=== PATIENT | male | born 1955 | race Caucasian/White ===

== ENCOUNTER 2017-02-24 11:04 | Outpatient (CLI) | payer BC ==
[2017-02-24 13:12] LABS: BASOPHILS % (AUTO) 0.6 %; EOSINOPHILS # (AUTO) 0.2 10^3/uL (0.0-0.7); EOSINOPHILS % (AUTO) 2.7 %; HCT - HEMATOCRIT 43.4 % (42.0-52.0); HGB - HEMOGLOBIN 14.5 g/dL (14.0-18.0); LYMPHOCYTES # (AUTO) 2.6 10^3/uL (1.5-3.5); LYMPHOCYTES % (AUTO) 33.2 %; MEAN CORPUSCULAR HEMOGLOBIN 31.3 pg (27.0-31.0); MEAN CORPUSCULAR HGB CONC 33.5 g/dL (32.0-36.0); MEAN CORPUSCULAR VOLUME 93.4 fL (80.0-94.0); MEAN PLATELET VOLUME 9.3 fL (7.4-11.4); MONOCYTES # (AUTO) 0.5 10^3/uL (0.0-1.0); NEUTROPHILS # (AUTO) 4.4 10^3/uL (1.5-6.6); NEUTROPHILS % (AUTO) 57.5 %; RED BLOOD COUNT 4.64 10^6/uL (4.70-6.10); RED CELL DISTRIBUTION WIDTH 13.4 % (12.0-15.0); UNCORRECTED WHITE BLOOD COUNT 7.7 x10^3/uL; WHITE BLOOD COUNT 7.7 x10^3/uL (4.8-10.8)
[2017-02-24 13:31] LABS: ALBUMIN/GLOBULIN RATIO 1.4 (1.0-2.2); BILIRUBIN,TOTAL 0.8 mg/dL (0.2-1.0); BUN - BLOOD UREA NITROGEN 15 mg/dL (6-20); CALCIUM 8.8 mg/dL (8.5-10.3); CARBON DIOXIDE - CO2 26 mmol/L (21-32); CHLORIDE 104 mmol/L (101-111); CHOL/HDL RATIO 3.1 (<5.0); CHOLESTEROL 192 mg/dL; CREATININE 0.8 mg/dL (0.6-1.2); GFR - MDRD 99 (>89); GLUCOSE 89 mg/dL (70-100); HDL CHOLESTEROL 62 mg/dL; LDL/HDL RATIO 1.6 (<3.6); POTASSIUM 3.9 mmol/L (3.5-5.0); SODIUM 138 mmol/L (135-145); TOTAL PROTEIN 7.7 g/dL (6.7-8.2); TRIGLYCERIDES 160 mg/dL; VLDL CHOLESTEROL 32 mg/dL
== END 2017-02-24 11:05 | disposition home or self-care (01) ==
LOC: LAB.N 11:04
PROVIDERS: ATTEND Family Medicine
DX: E66.9 Obesity, unspecified (principal); F17.210 Nicotine dependence, cigarettes, uncomplicated; I10 Essential (primary) hypertension; E78.5 Hyperlipidemia, unspecified
CPT/HCPCS: 36415; 80053; 80061; 84443; 85025

== ENCOUNTER 2017-03-09 05:33 | Emergency (ER) | payer BC ==
[2017-03-09] MEDS ORDERED: OXYMETAZOLINE NASAL SPRAY NAS STA (05:51)
--- NOTE | 2017-03-09 05:52 | ED Physician Documentation ---
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 He says it was dripping consistently out front right nostril. No noted injury. No recent URI.) Timing - duration: Hours (1) Timing - details: Abrupt onset, Still present Location: Nose (right nostril) Improves: Other (did not stop with putting kleenex up nostril nor ice over nose. ) Associated symptoms: No: Congestion, Rhinorrhea, Swollen nodes, Cough Similar symptoms before: Has not had sx before Recently seen: Not recently seen Review of Systems Constitutional: denies: Fever, Chills Nose: reports: Rhinorrhea / runny nose. denies: Congestion Throat: denies: Sore throat Respiratory: denies: Cough GI: denies: Abdominal Pain, Nausea, Vomiting Skin: denies: Rash, Lesions Neurologic: denies: Generalized weakness, Near syncope PD PAST MEDICAL HISTORY - Past Medical History Past Medical History: Yes Cardiovascular: Hypertension, High cholesterol Respiratory: None Neuro: Parkinson's Endocrine/Autoimmune: None GI: None : None HEENT: None Psych: None Musculoskeletal: None Derm: None - Past Surgical History Past Surgical History: Yes Ortho: Hip replacement - Allergies Allergies/Adverse Reactions: Allergies Allergy/AdvReac Type Severity Reaction Status Date / Time Penicillins Allergy Hives Verified 03/09/17 05:43 - Social History Does the pt smoke?: No Smoking Status: Never smoker Does the pt drink ETOH?: No Does the pt have substance abuse?: No - Immunizations Immunizations are current?: Yes PD ED PE NORMAL - Vitals Vital signs reviewed: Yes - General General: Alert and oriented X 3, No acute distress, Well developed/nourished, Other (some bleeding right nare with nose clamp in place. ) - HEENT HEENT: PERRL, Ears normal, Pharynx benign, Other (bleeding right anterior medial wall when clamping stopped, coming from point of inflammation with vessel elevated and mild bleeding. 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, No motor deficit, Normal speech Results - Vitals Vitals: Vital Signs - 24 hr 03/09/17 03/09/17 05:41 06:50 Temperature 36.1 C L Heart Rate 93 79 Respiratory 18 20 Rate Blood Pressure 157/88 H 143/80 H O2 Saturation 94 95 Oxygen O2 Source Room air Procedures - Epistaxis Site: Right, Anterior Preparation: Clots removed, Afrin, Lidocaine, Clamp / pressure applied Treatment: Silver Nitrate, Packing inserted Other: Observed - no bleeding, Pt tolerated well, O2 sat WNL Departure - Departure Disposition: Home, Self Care Clinical Impression: Epistaxis Condition: Stable Record reviewed to determine appropriate education?: Yes Instructions: ED Nosebleed Follow-Up: Leandro Pena MD [Primary Care Provider] - Comments: Leave the packing in the nostril through the day today and remove it this evening gently with the slow pole. Return if signs of significant bleeding. If he has slight bleeding then saturate the packing with the Afrin and penchant for 10-15 minutes. Once the packing is out for the next few days, use some saline nose spray or some Vaseline on a Q-tip to moisturizing lubricate the wall of the nostril as its healing. Discharge Date/Time: 03/09/17 06:50
[2017-03-09] MEDS ORDERED: OXYMETAZOLINE NASAL SPRAY NAS ONE (06:02)
[2017-03-09 06:51] VITALS: BP 143/80
== END 2017-03-09 06:50 | disposition home or self-care (01) ==
LOC: ED 05:33
DX: R04.0 Epistaxis (principal); I10 Essential (primary) hypertension; E78.00 Pure hypercholesterolemia, unspecified; G20 Parkinson's disease
CPT/HCPCS: 30901; 99282; 99283; A9270

== ENCOUNTER 2017-12-01 08:00 | Outpatient (CLI) | payer BC ==
[2017-12-01 12:49] LABS: BASOPHILS # (AUTO) 0.1 10^3/uL (0.0-0.1); BASOPHILS % (AUTO) 0.8 %; EOSINOPHILS # (AUTO) 0.2 10^3/uL (0.0-0.7); EOSINOPHILS % (AUTO) 2.3 %; HGB - HEMOGLOBIN 15.2 g/dL (14.0-18.0); LYMPHOCYTES # (AUTO) 2.6 10^3/uL (1.5-3.5); LYMPHOCYTES % (AUTO) 32.8 %; MEAN CORPUSCULAR HEMOGLOBIN 31.7 pg (27.0-31.0); MEAN CORPUSCULAR HGB CONC 33.7 g/dL (32.0-36.0); MEAN CORPUSCULAR VOLUME 94.3 fL (80.0-94.0); MEAN PLATELET VOLUME 9.4 fL (7.4-11.4); MONOCYTES # (AUTO) 0.5 10^3/uL (0.0-1.0); MONOCYTES % (AUTO) 6.1 %; NEUTROPHILS # (AUTO) 4.7 10^3/uL (1.5-6.6); PLT - PLATELET COUNT 209 10^3/uL (130-450); RED CELL DISTRIBUTION WIDTH 13.4 % (12.0-15.0); WHITE BLOOD COUNT 8.1 x10^3/uL (4.8-10.8)
[2017-12-01 13:09] LABS: ALBUMIN 4.3 g/dL (3.2-5.5); ALBUMIN/GLOBULIN RATIO 1.2 (1.0-2.2); ALKALINE PHOSPHATASE 68 IU/L (42-121); ALT ALANINE AMINOTRANSFERASE 10 IU/L (10-60); AST ASPARTATE AMINOTRANSFERASE 28 IU/L (10-42); BILIRUBIN,TOTAL 0.9 mg/dL (0.2-1.0); BUN - BLOOD UREA NITROGEN 18 mg/dL (6-20); CALCIUM 9.2 mg/dL (8.5-10.3); CARBON DIOXIDE - CO2 26 mmol/L (21-32); CHLORIDE 103 mmol/L (101-111); CHOL/HDL RATIO 2.9 (<5.0); CHOLESTEROL 175 mg/dL; CREATININE 0.9 mg/dL (0.6-1.2); GFR - MDRD 86 (>89); GLUCOSE 110 mg/dL (70-100); HDL CHOLESTEROL 60 mg/dL; LDL CHOLESTEROL,CALCULATED 86 mg/dL; LDL/HDL RATIO 1.4 (<3.6); SODIUM 138 mmol/L (135-145); TOTAL PROTEIN 7.8 g/dL (6.7-8.2); VLDL CHOLESTEROL 29 mg/dL
== END 2017-12-01 08:01 ==
LOC: LAB.N 08:00
PROVIDERS: ATTEND Family Medicine
DX: E78.5 Hyperlipidemia, unspecified (principal); I10 Essential (primary) hypertension; Z51.81 Encounter for therapeutic drug level monitoring; G20 Parkinson's disease
CPT/HCPCS: 36415; 80053; 80061; 83721; 85025

== ENCOUNTER 2017-12-15 08:00 | Outpatient (CLI) | payer BC ==
[2017-12-15 13:30] LABS: HB2 TOTAL 16.8 g/dL; HEMOGLOBIN A1C 0.63 g/dL; HEMOGLOBIN A1C % 5.6 % (4.6-6.2)
== END 2017-12-15 08:01 | disposition home or self-care (01) ==
LOC: LAB.N 08:00
PROVIDERS: ATTEND Family Medicine
DX: R73.01 Impaired fasting glucose (principal)
CPT/HCPCS: 36415; 83036

== ENCOUNTER 2018-03-23 11:30 | Outpatient (CLI) | payer BC ==
[2018-03-23 19:29] LABS: CALCIUM 9.1 mg/dL (8.5-10.3); CREATININE 0.8 mg/dL (0.6-1.2)
[2018-03-23 20:01] LABS: HB2 TOTAL 15.8 g/dL; HEMOGLOBIN A1C 0.55 g/dL; HEMOGLOBIN A1C % 5.3 % (4.6-6.2)
== END 2018-03-23 11:31 | disposition home or self-care (01) ==
LOC: LAB.WCP 11:30
PROVIDERS: ATTEND Family Medicine
DX: R73.01 Impaired fasting glucose (principal)
CPT/HCPCS: 36415; 80048; 83036

== ENCOUNTER 2019-11-07 07:00 | Outpatient (CLI) | payer BC ==
[2019-11-07 13:40] LABS: ALBUMIN 4.4 g/dL (3.2-5.5); ALBUMIN/GLOBULIN RATIO 1.4 (1.0-2.2); ALKALINE PHOSPHATASE 74 IU/L (42-121); ALT ALANINE AMINOTRANSFERASE 11 IU/L (10-60); AST ASPARTATE AMINOTRANSFERASE 30 IU/L (10-42); BASOPHILS # (AUTO) 0.1 10^3/uL (0.0-0.1); BASOPHILS % (AUTO) 0.8 %; BILIRUBIN,TOTAL 0.8 mg/dL (0.2-1.0); BUN - BLOOD UREA NITROGEN 24 mg/dL (6-20); CARBON DIOXIDE - CO2 24 mmol/L (21-32); CHLORIDE 104 mmol/L (101-111); CHOL/HDL RATIO 3.1 (<5.0); CHOLESTEROL 196 mg/dL; CREATININE 0.9 mg/dL (0.6-1.2); EOSINOPHILS # (AUTO) 0.3 10^3/uL (0.0-0.7); EOSINOPHILS % (AUTO) 4.2 %; GLUCOSE 101 mg/dL (70-100); HDL CHOLESTEROL 64 mg/dL; HGB - HEMOGLOBIN 15.2 g/dL (14.0-18.0); LDL CHOLESTEROL,CALCULATED 93 mg/dL; LDL/HDL RATIO 1.5 (<3.6); LYMPHOCYTES # (AUTO) 2.1 10^3/uL (1.5-3.5); LYMPHOCYTES % (AUTO) 29.8 %; MEAN CORPUSCULAR HEMOGLOBIN 31.5 pg (27.0-31.0); MEAN CORPUSCULAR HGB CONC 32.5 g/dL (32.0-36.0); MEAN CORPUSCULAR VOLUME 96.7 fL (80.0-94.0); MEAN PLATELET VOLUME 10.5 fL (7.4-11.4); MONOCYTES # (AUTO) 0.6 10^3/uL (0.0-1.0); MONOCYTES % (AUTO) 7.9 %; NEUTROPHILS % (AUTO) 56.9 %; PLT - PLATELET COUNT 197 10^3/uL (130-450); RED BLOOD COUNT 4.83 10^6/uL (4.70-6.10); RED CELL DISTRIBUTION WIDTH 12.9 % (12.0-15.0); SODIUM 137 mmol/L (135-145); TOTAL PROTEIN 7.5 g/dL (6.7-8.2); VLDL CHOLESTEROL 39 mg/dL; WHITE BLOOD COUNT 7.1 x10^3/uL (4.8-10.8)
== END 2019-11-07 23:59 | disposition home or self-care (01) ==
LOC: LAB.WCP 07:00
PROVIDERS: ATTEND Physician Assistant Medical
DX: G20 Parkinson's disease (principal); E78.2 Mixed hyperlipidemia; I10 Essential (primary) hypertension; R41.3 Other amnesia; Z12.5 Encounter for screening for malignant neoplasm of prostate
CPT/HCPCS: 36415; 80053; 80061; 83721; 84443; 85025

== ENCOUNTER 2021-02-12 07:59 | Outpatient (CLI) | payer BC ==
[2021-02-12 12:32] LABS: BASOPHILS # (AUTO) 0.1 10^3/uL (0.0-0.1); BASOPHILS % (AUTO) 0.6 %; EOSINOPHILS # (AUTO) 0.3 10^3/uL (0.0-0.7); EOSINOPHILS % (AUTO) 3.3 %; HCT - HEMATOCRIT 44.2 % (42.0-52.0); LYMPHOCYTES # (AUTO) 1.9 10^3/uL (1.5-3.5); LYMPHOCYTES % (AUTO) 24.1 %; MEAN CORPUSCULAR HEMOGLOBIN 30.5 pg (27.0-31.0); MEAN CORPUSCULAR HGB CONC 31.7 g/dL (32.0-36.0); MEAN CORPUSCULAR VOLUME 96.3 fL (80.0-94.0); MONOCYTES # (AUTO) 0.6 10^3/uL (0.0-1.0); MONOCYTES % (AUTO) 8.2 %; NEUTROPHILS % (AUTO) 63.3 %; PLT - PLATELET COUNT 207 10^3/uL (130-450); RED BLOOD COUNT 4.59 10^6/uL (4.70-6.10); RED CELL DISTRIBUTION WIDTH 13.2 % (12.0-15.0); WHITE BLOOD COUNT 7.8 x10^3/uL (4.8-10.8)
[2021-02-12 12:53] LABS: ALBUMIN 4.4 g/dL (3.2-5.5); ALBUMIN/GLOBULIN RATIO 1.3 (1.0-2.2); ALKALINE PHOSPHATASE 75 IU/L (42-121); ALT ALANINE AMINOTRANSFERASE < 10 IU/L (10-60); AST ASPARTATE AMINOTRANSFERASE 20 IU/L (10-42); BILIRUBIN,TOTAL 0.9 mg/dL (0.2-1.0); BUN - BLOOD UREA NITROGEN 34 mg/dL (6-20); CALCIUM 9.2 mg/dL (8.5-10.3); CARBON DIOXIDE - CO2 25 mmol/L (21-32); CHLORIDE 101 mmol/L (101-111); CHOL/HDL RATIO 3.7 (<5.0); CHOLESTEROL 198 mg/dL; CREATININE 1.3 mg/dL (0.6-1.2); GFR - MDRD 56 (>89); GLUCOSE 105 mg/dL (70-100); HDL CHOLESTEROL 53 mg/dL; LDL CHOLESTEROL,CALCULATED 117 mg/dL; LDL/HDL RATIO 2.2 (<3.6); POTASSIUM 4.5 mmol/L (3.5-5.0); SODIUM 135 mmol/L (135-145); TOTAL PROTEIN 7.8 g/dL (6.7-8.2); TRIGLYCERIDES 141 mg/dL; VLDL CHOLESTEROL 28 mg/dL
[2021-02-12 13:09] LABS: THYROID STIMULATING HORMONE 1.6 uIU/mL (0.34-5.60)
== END 2021-02-12 23:59 | disposition home or self-care (01) ==
LOC: LAB.WCP 07:59
PROVIDERS: ATTEND Family Medicine
DX: I10 Essential (primary) hypertension (principal); E78.2 Mixed hyperlipidemia; Z12.5 Encounter for screening for malignant neoplasm of prostate
CPT/HCPCS: 36415; 80053; 80061; 83721; 84153; 84443; 85025

== ENCOUNTER 2021-12-03 12:51 | Outpatient (CLI) | payer BC ==
[2021-12-03 13:51] VITALS: BP 132/82
--- NOTE | 2021-12-03 13:51 | SLEEP CARE CONSULTATION ---
Information from patient questionnaire entered by Candice Rapp MA. I have reviewed and concur with the information entered by Candice Rapp MA. This document represents the service I personally performed and the decisions made by me, Meche Desouza ARNP. History of Present Illness Service Date and Time: 12/03/2021 1251 Reason for Visit: New patient (ONSET 06/19[birth year]2011, ) Chief Complaint: reports: Snoring, Observed pauses in breathing, Other (HALLUCINATIONS, TERRIBLE DREAMS) Date of Onset: OVER A YEAR, GETTING WORSE for nightmares Usual bedtime: 930-1030 PM Time it takes to fall asleep: 5-10 MINUTES Snores at night: Yes Observed to quit breathing while asleep: Yes (per ) Sleeps alone due to snoring: No Number of times waking at night: 1 Reasons for waking at night: reports: Snoring, Pain (from leg cramps), Bathroom. denies: Choking, Gasping for air Toss, Turn, or Twitch while sleeping: Yes Recalls having dreams: No (not even the nightmares) Usually gets out of bed at: 0330; weekends 0430 Feels refreshed in the morning: Yes Morning headache: No Sleepy or fatigued during the day: Yes (he has nodded off at desk at work) Ever fallen asleep while driving: Yes (drowsy driving; no accidents) Takes day naps: No (no intentional naps; will fall asleep after dinner sometimes for about hour) Dreams during day naps: No Prior sleep studies: No Additional HPI information: I had the pleasure of seeing OTILIA GÓMEZ today regarding the possibility of him having a sleep disorder. His current complaints are snoring, hallucinations and terrible dreams. He states his neurologist wanted him to have a sleep evaluation. He states he has Parkinson's and he has been seeing things. He states it can happen anytime of day. He denies having hallucinations when going to sleep or when waking up. He will see things and his tells him there is nothing there. He states he is having nightmares that happen 1-2 times a month. He has been waking up hitting out at the headboard and may have hit his . He woke up once with a black eye and scratches on his face with no recollection of how they happened. He has screamed and talked in his sleep. His doctor wants to see if he is getting enough sleep, to see if this is affecting these behaviors. His has told him that he snores but his will still sleep in same room. He has woke himself up snorting when falling asleep in his recliner after falling asleep. His has noted him stop breathing when sleeping and then gasp before snoring/breathing again. He is taking some medications that could cause nightmares; atorvastatin, pramipexole and levodopa. - Parasomnia Symptoms Ever been unable to move upon waking from sleep: No Walks in sleep: No Talks in sleep: Yes Ever acted out dreams in sleep: Yes (hitting out) Ever felt weak in the knees when startled or emotional: No Bothered by creepy, crawly, restless sensations in legs: Yes (usually at night, when sitting in chair; hard to sit still) Problems with memory or concentration: Yes (both; memory worse) Subjective Initial [place] Sleepiness Scale score: 10 (12/03/2021) Past Medical History Past Medical History: reports: Hypertension, Claustrophobia, Arthritis, Gout, Impotence, Depression, Other (PARKINSONS DISEASE) Social History 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 Patient is and lives in . Have you smoked in the past 12 months: Yes Cigarettes per day (20/pack): 10 Years of smokin Smoking Pack Years: 7.5 Alcohol use: Yes Alcohol amount and frequency: 1-2 X DAILY Caffeine use: Yes Caffeine amount and frequency: 2 X DAILY Family History Family history of sleep disordered breathing: No Allergies and Home Medications Known drug allergies: Yes (PNC) Drug allergies reviewed: Yes (Penicillin) Home medication list reviewed: Yes Allergy and home medication list: Allergies Penicillins Allergy (Verified 03/09/17 05:43) Hives Medications: Amlodipine 2.5 mg Atorvastatin 40 mg Carbidopa-levodopa 25-100 mg Carbidopa-levodopa CR 50-200 mg Entacapone 200 mg Lisinopril 20 mg Pramipexole 0.25 mg Rasagiline 1 mg Sertraline 25 mg Review of Systems Weight gain over past 5 years: 25 lbs Cardiovascular: reports: high blood pressure, irregular heart rate or pulse Gastrointestinal: reports: nausea, vomitting Urinary: reports: impotence Neurological: reports: disorientation, gait or balance problems Psychiatric: reports: depression, claustrophobia Ear/Nose/Throat: reports: tonsillectomy, wisdom teeth removed Musculoskeletal: reports: joint pain, muscle pain or cramping, mobility problems Immunologic: reports: allergies to food or environment Physical Exam Vital signs obtained and entered by: Nader RAPP CMA AAMN Blood Pressure: 132/82 (RESP 18, PULSE 108, LEFT) Heart Rate: 111 O2 Saturation: 96 (PAPER MASK) Height: 5 ft 8 in Weight: 287 lb 8 oz (CLOTHES) Body Mass Index: 43.7 BMI Classification: Morbidly Obese Neck circumference: 19 (INCHES) Mouth and throat: narrow oropharynx Soft palate: long Hard palate: normal Uvula: normal Uvula visualization: 25% Mallampati Class III Tongue: enlarged in size with teeth porter on lateral edges Tonsils: absent bilaterally Neck: normal w/o lymphadenopathy or thyromegaly Heart: irregular rhythm Lungs: clear bilaterally Impression and Plan 1. Suspected Obstructive Sleep Apnea-Hypopnea Syndrome, as suggested by a history of loud and irregular snoring, observed cessation of breath while asleep, gasping or choking in sleep and cognitive impairment. Narrow oropharynx and obesity are common predisposing factors for obstructive sleep apnea-hypopnea syndrome. I recommend proceeding to polysomnography to confirm the diagnosis and to assess severity. If the patient has significant sleep disordered breathing, a manual CPAP titration study will also be performed to find the optimal treatment pressure. I informed the patient of what the sleep studies involve and after some discussion, obtained agreement to proceed. The pathophysiology of obstructive sleep apnea-hypopnea syndrome was discussed with the patient and health risks of cardiovascular and cerebrovascular disease if not treated. Risks of drowsy driving discussed in detail and patient advised to avoid long distance driving and to picker/puller at the first sign of drowsiness. Patient agreed to plan. * Schedule polysomnography * Avoid long distance driving or driving when feeling sleepy. * Avoid alcohol, sedative and muscle relaxant around bedtime. * Attempt to lose weight. * Review instructions provided by trained office staff on how to prepare for the sleep study. * Return for follow-up after sleep study completed. Counseling Topics: Weight loss health impact Visit Type: In Office Time Spent with Patient (minutes): 40 Provider Statement: I spent 100% of the Face to Face Visit with the patient with greater than 50% spent counseling the patient and coordination of care.
== END 2021-12-03 12:52 | disposition home or self-care (01) ==
LOC: SC 12:51
PROVIDERS: ATTEND Nurse Practitioner Family
DX: R53.83 Other fatigue (principal); G47.8 Other sleep disorders; R06.83 Snoring; R06.81 Apnea, not elsewhere classified; F32.A Depression, unspecified; I10 Essential (primary) hypertension; E66.01 Morbid (severe) obesity due to excess calories; Z68.41 Body mass index [BMI] 40.0-44.9, adult; F17.210 Nicotine dependence, cigarettes, uncomplicated
CPT/HCPCS: 99203; 99212

== ENCOUNTER 2022-01-08 09:32 | Outpatient (CLI) | payer BC ==
[2022-01-08 18:57] LABS: BASOPHILS # (AUTO) 0.1 10^3/uL (0.0-0.1); BASOPHILS % (AUTO) 0.6 %; EOSINOPHILS # (AUTO) 0.1 10^3/uL (0.0-0.7); EOSINOPHILS % (AUTO) 1.6 %; HGB - HEMOGLOBIN 14.1 g/dL (14.0-18.0); LYMPHOCYTES # (AUTO) 1.8 10^3/uL (1.5-3.5); LYMPHOCYTES % (AUTO) 22.4 %; MEAN CORPUSCULAR HEMOGLOBIN 30.1 pg (27.0-31.0); MEAN PLATELET VOLUME 11.7 fL (7.4-11.4); MONOCYTES # (AUTO) 0.5 10^3/uL (0.0-1.0); MONOCYTES % (AUTO) 5.9 %; NEUTROPHILS # (AUTO) 5.6 10^3/uL (1.5-6.6); PLT - PLATELET COUNT 194 10^3/uL (130-450); RED BLOOD COUNT 4.68 10^6/uL (4.70-6.10); RED CELL DISTRIBUTION WIDTH 13.2 % (12.0-15.0); WHITE BLOOD COUNT 8.2 x10^3/uL (4.8-10.8)
[2022-01-08 19:15] LABS: ALBUMIN 4.7 g/dL (3.2-5.5); ALBUMIN/GLOBULIN RATIO 1.6 (1.0-2.2); ALKALINE PHOSPHATASE 65 IU/L (42-121); ALT ALANINE AMINOTRANSFERASE 10 IU/L (10-60); AST ASPARTATE AMINOTRANSFERASE 29 IU/L (10-42); BUN - BLOOD UREA NITROGEN 39 mg/dL (6-20); CALCIUM 9.3 mg/dL (8.5-10.3); CARBON DIOXIDE - CO2 22 mmol/L (21-32); CHLORIDE 110 mmol/L (101-111); CHOL/HDL RATIO 3.3 (<5.0); CHOLESTEROL 173 mg/dL; CREATININE 1.3 mg/dL (0.6-1.2); GFR - MDRD 55 (>89); GLUCOSE 99 mg/dL (70-100); HDL CHOLESTEROL 53 mg/dL; LDL CHOLESTEROL,CALCULATED 95 mg/dL; LDL/HDL RATIO 1.8 (<3.6); MAGNESIUM 1.9 mg/dL (1.7-2.8); POTASSIUM 4.8 mmol/L (3.5-5.0); SODIUM 139 mmol/L (135-145); TOTAL PROTEIN 7.6 g/dL (6.7-8.2); TRIGLYCERIDES 124 mg/dL; VLDL CHOLESTEROL 25 mg/dL
[2022-01-08 19:24] LABS: THYROID STIMULATING HORMONE 1.46 uIU/mL (0.34-5.60)
[2022-01-08 20:36] LABS: ESTIMATED AVERAGE GLUCOSE 128 mg/dL (70-100); HEMOGLOBIN A1c% 6.1 % (4.27-6.07)
== END 2022-01-08 09:33 | disposition home or self-care (01) ==
LOC: LAB.N 09:32
PROVIDERS: ATTEND Physician Assistant
DX: I48.21 Permanent atrial fibrillation (principal); E78.2 Mixed hyperlipidemia; R73.01 Impaired fasting glucose; Z12.5 Encounter for screening for malignant neoplasm of prostate
CPT/HCPCS: 36415; 80053; 80061; 83036; 83721; 83735; 84153; 84443; 85025

== ENCOUNTER 2022-01-13 12:47 | Outpatient (CLI) | payer BC | END 2022-01-13 12:48 | disposition home or self-care (01) | LOC: DI 12:47 | PROVIDERS: ATTEND Physician Assistant | DX: I48.21 Permanent atrial fibrillation (principal); R01.1 Cardiac murmur, unspecified; I51.7 Cardiomegaly; I77.810 Thoracic aortic ectasia; I35.0 Nonrheumatic aortic (valve) stenosis; I87.8 Other specified disorders of veins | CPT/HCPCS: 93306 ==

== ENCOUNTER 2022-03-29 13:21 | Outpatient (CLI) | payer BC ==
--- NOTE | 2022-03-29 14:00 | SLEEP CARE CONSULTATION ---
Information from patient questionnaire entered by Juan Pablo Madison. I have reviewed and concur with the information entered by Juan Pablo Madison. This document represents the service I personally performed and the decisions made by me, Meche Desouza ARNP. History of Present Illness Service Date and Time: 03/29/2022 1321 Initial [place] Sleepiness Scale score: 10 (12/03/2021) Current [place] Sleepiness Scale score: 16 (03/29/22) Additional HPI information: OTILIA GÓMEZ returns for follow up and results of the recently performed polysomnography. I explained the pathophysiology behind obstructive sleep apnea. We then spent quite a bit of time discussing different treatment options. For mild obstructive sleep apnea, surgery and oral appliance are alternatives to nasal CPAP therapy but in moderate or severe cases, nasal CPAP is the most effective and reliable treatment. Because apnea is primarily in supine position, then positional management therapy could be effective. Methods discussed such as positioning with pillows to prevent supine sleep. I reviewed the impact of weight changes on sleep apnea and strongly recommended losing weight. After some discussion, the patient opted to go with the nasal CPAP therapy. Nasal autoCPAP set at 4-15 cmH20 will be ordered with rationale explained. A manual titration study will be ordered if unable to find optimal pressure with office adjustments. I explained how CPAP machine works and what to expect when using the machine. Using CPAP every night in order to get used to it was emphasized. Patient advised to put CPAP mask on before getting into bed so as not to fall asleep without CPAP. To assist acclimation to CPAP use, it could also be used for a short time during day while reading or watching TV. The patient was instructed to call the CPAP supplier to discuss any mechanical problem that may occur. If the mask given is uncomfortable or is difficult to keep on through the night even with adjustment, contact the CPAP supplier as many will replace with another mask style if notified before 30 days. If snoring or perceives is not getting enough air or too much air from the machine, notify this office. Patient does not drink alcohol. Patient was cautioned about risks of drowsy driving until sleepiness symptoms resolve. Patient denies drowsy driving. Sleep Study - Results Type of Sleep Study: Polysomnography (DONE ON 12/23/21) Prior sleep studies: No Polysomnography/Home Sleep Study results: IMPRESSION: The quality of the study is good. The patient had normal sleep efficiency. The sleep architecture was abnormal for sleep fragmentation and reduced amount of time spent in REM sleep. Respiratory monitoring showed moderate obstructive sleep apnea-hypopnea (AHI = 18.3) associated with frequent arousals, oxyhemoglobin desaturation and moderate hypoxia (preston oxygen saturation of 78%). Baseline oxygen saturation was normal. The respiratory events occurred more frequently during supine sleep and REM sleep (supine AHI = 23.6; non-supine = 13.55). Snore was loud in intensity. There was moderate periodic leg movement of sleep not contributing to the sleep fragmentation. Cardiac rhythm was atrial fibrillation. No abnormal behavior (parasomnia) observed during the night. 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 Obstructive Sleep Apnea-Hypopnea Syndrome, moderate, with lowest oxygen saturation of 78%. Obviously this is the cause of the patients symptoms of unrefreshed sleep, and excessive daytime sleepiness. Positive pressure therapy could benefit hypertension, depression and Parkinson's disease. As mentioned above, the patient will be started on nasal autoCPAP therapy with pressure set at 4-15 cmH2O. A manual titration study will be completed if unable to find optimal treatment pressure with office adjustments. Compliance guidelines also reviewed. A copy of compliance guidelines will be given for reference at check out. Because the apnea is more severe supine, I instructed to avoid sleeping supine using pillow positioning until able to start CPAP use. 2. Hypoxemia, moderate, with a preston oxygen saturation of 78% and 12.4 minutes spent under 90%. His baseline oxygen saturation was normal with an average oxygen saturation of 91%. 3. Atrial fibrillation. Arrhythmia noted during sleep study. Patient has had some follow up with his PCP and cardiology after results of his PSG was completed. He had a follow up with cardiology who did some blood work and they found blood markers that were abnormal. 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 He had quick surgery to remove this tumor on February 17, 2022. He was started on Eliquis for his atrial fibrillation. He is now being follow by cardiology who wanted him to come in and get set up on a CPAP. 4. Periodic limb movement, moderate, that did not fragment patients sleep. Periodic limb movement of sleep (PLMS) is characterized by episodes of repetitive limb movements that occur during sleep and usually involve the lower limbs. Caffeine can aggravate PLMS and should be avoided. Sleep hygiene methods can also improve sleep as well as lifestyle changes such as regular exercise. Patient was advised that no treatment is needed at this time. If symptoms increase, then further evaluation is indicated. * Nasal auto CPAP therapy, pressure at 4-15 cm H2O. * Follow up with PCP for arrhythmia finding * Attempt to lose weight. * Avoid alcohol consumption near bedtime. * Avoid supine sleep until using CPAP. * The patient is again cautioned about driving until sleepiness completely resolves. * Return one month after CPAP obtained. I will assess response to therapy and compliance at that time. Counseling Topics: Sleeping position, Weight loss health impact Follow up with: PCP Follow up recommended for: Cardiac arrhythmia Visit Type: In Office Time Spent with Patient (minutes): 22 Provider Statement: I spent 100% of the Face to Face Visit with the patient with greater than 50% spent counseling the patient and coordination of care.
[2022-03-29 14:01] VITALS: BP 128/70
== END 2022-03-29 13:22 | disposition home or self-care (01) ==
LOC: SC 13:21
PROVIDERS: ATTEND Nurse Practitioner Family
DX: G47.33 Obstructive sleep apnea (adult) (pediatric) (principal); R09.02 Hypoxemia; I48.91 Unspecified atrial fibrillation; G47.61 Periodic limb movement disorder; Z79.01 Long term (current) use of anticoagulants; E66.01 Morbid (severe) obesity due to excess calories; Z68.41 Body mass index [BMI] 40.0-44.9, adult
CPT/HCPCS: 99212; 99213

== ENCOUNTER 2022-05-31 07:29 | Outpatient (CLI) | payer BC | END 2022-05-31 07:30 | disposition home or self-care (01) | LOC: LAB.N 07:29 | PROVIDERS: ATTEND Nurse Practitioner | DX: U07.1 COVID-19 (principal) ==

== ENCOUNTER 2022-07-01 08:36 | Outpatient (CLI) | payer BC ==
[2022-07-01 09:30] VITALS: BP 110/68
--- NOTE | 2022-07-01 09:30 | SLEEP CARE CONSULTATION ---
Information from patient questionnaire entered by Aurora Ibrahim. I have reviewed and concur with the information entered by Aurora Ibrahim. This document represents the service I personally performed and the decisions made by , Meche Desouza ARNP. History of Present Illness Service Date and Time: 07/01/2022 0836 Previous diagnosis: Moderate, Obstructive Sleep Apnea-Hypopnea Syndrome AHI: 18.3 (in 2021) Reason for follow up: first compliance (SET UP 04/21/22) Equipment type: CPAP (RESMED Airsense 11 s/u 04/21/2022) Equipment obtained from: Other ([facility]; getting supplies) Mask style: Nasal pillows (Dalzell II) Backup mask available: Yes (other nasal mask (dreamwear)) Last cushion change: month Prior sleep studies: No Type of Sleep Study: Polysomnography (DONE ON 12/23/21) HPI additional information: OTILIA GÓMEZ was diagnosed to have moderate, AHI 18.3, obstructive sleep apnea-hypopnea syndrome and returned today for CPAP therapy first compliance follow-up. Sleep Study - Results Type of Sleep Study: Polysomnography (DONE ON 12/23/21) Prior sleep studies: No CPAP Compliance Data - Data Reviewed with Patient Average duration of nightly device use: 4 HRS 21 MIN Compliance rate %: 97 (05/31/22-06/29/22; 30/30 days used) Current pressure setting (cmH2O): 4-15 (median 6.8, avg 9.9, max 11.1) Average residual AHI: 3.1 Central apnea: 0.2 Obstructive apnea: 1.2 Hypopnea: 1.3 Average large leak: 1.8 LPM Subjective Patient concerns: reports: mask discomfort (using pillows mask with some skin irriation; tried nasal cushion but would dislodge when on side), other (skin irritation of nose; resolved with putting lotion on skin). denies: aerophagia, air blowing in eyes, mask leak noise, condensation in mask/hose, nasal congestion, dry mouth, nose, throat, epistaxis Observed to snore while using device: No Current pressure setting perceived as: comfortable On therapy, patient: reports: sleeping better, awakening more refreshed, being more awake and alert during the day, more rested overall. denies: drowsiness while driving Initial [place] Sleepiness Scale score: 10 (12/03/2021) Current [place] Sleepiness Scale score: 14 (07/01/22) Allergies and Home Medications Drug allergies reviewed: Yes (penicillin) Home medication list reviewed: Yes (Manrique-truda infusions) Review of Systems Review of systems same as previous: No (Renal cell carcinoma) Physical Exam Vital signs obtained and entered by: AURORA Medina MA Blood Pressure: 110/68 (LEFT ARM) Cuff size: regular Heart Rate: 93 O2 Saturation: 95 Height: 5 ft 8 in Weight: 288 lb 12.8 oz Body Mass Index: 43.9 BMI Classification: Morbidly Obese Impression and Plan 1. Obstructive Sleep Apnea-Hypopnea Syndrome, moderate, with good treatment compliance and good apnea control. On CPAP therapy, the patient has better sleep quality and is more rested overall. The patients pressure will be changed to autoCPAP 7-11 cmH20 to reflect pressure being used. Patient advised to contact me if pressure change is uncomfortable so that it can be adjusted. Goals for apnea control discussed. Patient is using a nasal pillows mask, Dalzell II. He does like it now the skin irritation of his nose is resolved. He was given a Dreamwear nasal cushion mask that he likes the headgear set up but it will leak more when he is on his side because the mask becomes dislodged from his nose. I showed him the Dreamwear nasal pillows mask that is very similar to the Dreamwear nasal cushion mask and he would like to try it. I had a sample of a nasal pillows cushion, size medium, that fit his headgear and showed him how to connect. He will give this a try, if he likes this one better, he will order the nasal pillows cushions when he can in July. Otherwise he may need a larger cushion size on the Dalzell II since it is a small. Patient's apnea severity and rationale for treatment to reduce apnea, improve sleep quality and reduce cardiovascular and cerebrovascular events was reviewed. I also reviewed the benefit of consistent device use of CPAP for hypertension, arrhythmia (Afib) and depression. 2. Obesity, unspecified. Currently patients BMI is 43.9. Obesity increases the risk of apnea, CPAP pressure requirements and overall health risks especially cardiovascular and diabetes. Thus patient is advised to lose weight. * Change auto CPAP pressure to 7-11 cmH2O * Notify me if snoring with mask or feeling that the pressure is too much or too little * Attempt to lose weight * Call this office if any problems using CPAP * Return for follow up in 3 months, or sooner if concerns arise Counseling Topics: Spare mask, Weight loss health impact Visit Type: In Office Time Spent with Patient (minutes): 29 Provider Statement: I spent 100% of the Face to Face Visit with the patient with greater than 50% spent counseling the patient and coordination of care.
== END 2022-07-01 08:37 | disposition home or self-care (01) ==
LOC: SC 08:36
PROVIDERS: ATTEND Nurse Practitioner Family
DX: G47.33 Obstructive sleep apnea (adult) (pediatric) (principal); E66.01 Morbid (severe) obesity due to excess calories; Z68.41 Body mass index [BMI] 40.0-44.9, adult
CPT/HCPCS: 99212; 99213

== ENCOUNTER 2022-09-30 08:14 | Outpatient (CLI) | payer BC ==
--- NOTE | 2022-09-30 08:55 | SLEEP CARE CONSULTATION ---
Information from patient questionnaire entered by Aurora Ibrahim. I have reviewed and concur with the information entered by Aurora Ibrahim. This document represents the service I personally performed and the decisions made by me, Meche Desouza ARNP. History of Present Illness Service Date and Time: 09/30/2022 0814 Previous diagnosis: Moderate, Obstructive Sleep Apnea-Hypopnea Syndrome AHI: 18.3 (in 2021) Reason for follow up: three month (F/U) Equipment type: CPAP (RESMED Airsense 11, s/u 04/2022) Equipment obtained from: Other ([facility], getting supplies as needed) Mask style: Nasal Mask brand: Respironics (Dreamwear) Backup mask available: Yes (other mask) Last cushion change: yesterday Prior sleep studies: No Type of Sleep Study: Polysomnography (DONE ON 12/23/21) HPI additional information: OTILIA GÓMEZ was diagnosed to have moderate, AHI 18.3, obstructive sleep apnea-hypopnea syndrome and returned today for CPAP therapy three month follow- up. Sleep Study - Results Type of Sleep Study: Polysomnography (DONE ON 12/23/21) Prior sleep studies: No CPAP Compliance Data - Data Reviewed with Patient Average duration of nightly device use: 4 HRS 38 MINS Compliance rate %: 98 (07/01/22-09/28/22; 90/90 days used) Current pressure setting (cmH2O): 7-11 Average residual AHI: 3.2 Central apnea: 0.3 Obstructive apnea: 1.5 Hypopnea: 1.3 Average large leak: 0.4 lpm Subjective Patient concerns: reports: mask discomfort (with the nasal pillows, resolved with nasal cushion), air blowing in eyes, mask leak noise. denies: aerophagia, condensation in mask/hose, nasal congestion, dry mouth, nose, throat, epistaxis Observed to snore while using device: No Current pressure setting perceived as: comfortable On therapy, patient: reports: other (not feeling he rests better without mask on but is persisting with using it nightly). denies: drowsiness while driving Initial [place] Sleepiness Scale score: 10 (12/03/2021) Current [place] Sleepiness Scale score: 11 (09/30/22) Allergies and Home Medications Known drug allergies: Yes (penicillin) Drug allergies reviewed: Yes Home medication list reviewed: Yes (Levothyroxine 75 mcg) Allergy and home medication list: Allergies Penicillins Allergy (Verified 09/29/22 14:13) Hives Review of Systems Review of systems same as previous: No (low thyroid due to cancer immunotherapy) Physical Exam Vital signs obtained and entered by: AURORA Medina MA Blood Pressure: 128/72 (LEFT ARM) Cuff size: long Heart Rate: 69 O2 Saturation: 98 Height: 5 ft 8 in Weight: 296 lb Body Mass Index: 45.0 BMI Classification: Morbidly Obese Impression and Plan 1. Obstructive Sleep Apnea-Hypopnea Syndrome, moderate, with good treatment compliance and good apnea control. Patient has been struggling to get used to having the mask on his face. He will take it off and sleep deeply and then put it back on for couple more hours to complete his compliance. He did change from the nasal pillows mask because it was causing sores in his nose. He got a nasal cushion DreamWear mask that was doing better but leaking until he changed the mask cushion again. He noted last night sleeping better and longer with the mask on. I encouraged him to continue with the nasal cushion and to change it more often, at least monthly to get the best seal. He voiced understanding. He will follow-up in about 6 months. Patient's apnea severity and rationale for treatment to reduce apnea, improve sleep quality and reduce cardiovascular and cerebrovascular events was reviewed. I also reviewed the benefit of consistent device use of CPAP for hypertension, arrhythmia (Afib) and depression. 2. Obesity, unspecified. Currently patients BMI is 45.0. Obesity increases the risk of apnea, CPAP pressure requirements and overall health risks especially cardiovascular and diabetes. Thus patient is advised to lose weight. The patient's CPAP pressure range should accommodate some weight loss. * Continue auto CPAP pressure at 7-11 cmH2O * Notify me if snoring with mask or feeling that the pressure is too much or too little * Attempt to lose weight * Call this office if any problems using CPAP * Return for follow up in 6 months, or sooner if concerns arise Counseling Topics: Spare mask, Weight loss health impact Visit Type: In Office Time Spent with Patient (minutes): 21 Provider Statement: I spent 100% of the Face to Face Visit with the patient with greater than 50% spent counseling the patient and coordination of care.
[2022-09-30 08:56] VITALS: BP 128/72
== END 2022-09-30 08:15 | disposition home or self-care (01) ==
LOC: SC 08:14
PROVIDERS: ATTEND Nurse Practitioner Family
DX: G47.33 Obstructive sleep apnea (adult) (pediatric) (principal); E66.01 Morbid (severe) obesity due to excess calories; Z68.42 Body mass index [BMI] 45.0-49.9, adult
CPT/HCPCS: 99212; 99213